=== PATIENT | male | born 2000 | race Caucasian/White ===

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

== ENCOUNTER 2023-06-27 23:48 | Emergency (ER) | payer BC ==
[~2023-06-27] VITALS: Ht 177.8 cm; Wt 78.0 kg
[2023-06-28 00:04] VITALS: TEMP 98.1
[2023-06-28] MEDS ORDERED: NS 1,000 ML IV ONE (00:15)
[2023-06-28 00:42] LABS: BASO # 0.1 K/mm3 (0.0-0.2); BASO % 1.1 % (0.0-2.0); EOS # 0.7 K/mm3 (0.0-0.7); EOS % 11.5 % (0.0-4.0); GRAN # 2.4 K/mm3 (1.4-6.5); HEMATOCRIT 41.1 % (42.0-52.0); HEMOGLOBIN 14.5 g/dl (13.5-18.0); LYMPH # 2.8 K/mm3 (1.2-3.4); LYMPH % 43.4 % (20.0-51.0); MEAN CELL VOLUME 89 fl (80.0-100.0); MEAN CORPUSCULAR HEMOGLOBIN 32 pg (27-31); MEAN CORPUSCULAR HGB CONC 35 g/dl (33.0-37.0); MEAN PLATELET VOLUME 9.8 fl (7.4-10.4); MONO # 0.4 K/mm3 (0.1-0.6); MONO % 6.7 % (1.7-9.3); PLATELET COUNT 219 K/mm3 (130-400); REDCELL DISTRIBUTION WIDTH-CV 11.9 % (11.5-14.5)
[2023-06-28 00:58] LABS: ALBUMIN 4.2 g/dL (3.5-5.0); BILIRUBIN,TOTAL 0.5 mg/dL (0.2-1.2); CALCIUM 9.3 mg/dL (8.4-10.2); CREATININE, serum 0.92 mg/dL (0.72-1.25); POTASSIUM 3.4 mEq/L (3.5-4.5); TOTAL PROTEIN 6.9 g/dl (6.2-8.1)
[2023-06-28 01:12] LABS: COLLECTION METHOD CLEAN CATCH
[2023-06-28 01:18] LABS: URINE APPEARANCE CLEAR (CLEAR/HAZY); URINE BLOOD NEGATIVE (NEGATIVE); URINE COLOR YELLOW (YELLOW); URINE GLUCOSE NEGATIVE (NEGATIVE); URINE KETONE NEGATIVE (NEGATIVE); URINE NITRATE NEGATIVE (NEGATIVE); URINE PROTEIN(semi-quant) NEGATIVE (NEGATIVE)
[2023-06-28] MEDS ORDERED: Ibuprofen 400 MG TAB PO ONE (01:45)
[2023-06-28] MEDS ORDERED: Acetaminophen 325 MG TAB PO ONE (01:45)
[2023-06-28 02:00] VITALS: BP 123/81; PULSE 80
== END 2023-06-28 02:05 | disposition home or self-care (01) ==
LOC: COL.ER 23:48
PROVIDERS: Nurse Practitioner Primary Care
DX: R39.89 Other symptoms and signs involving the genitourinary system (principal)
CPT/HCPCS: J7030